=== PATIENT | female | born 1965 | race Two or more races ===

== ENCOUNTER → 2018-02-01 | Day surgery (SDC) | payer OTHER ==
[~2018-02-01] MED LIST: CALTRATE 600+D1 EACH PO; IRBESARTAN75 MG PO; METFORMIN HCL500 MG PO; SYNTHROID112 MCG PO; VITAMIN D350000 UNIT PO
== END | disposition home or self-care (01) ==
LOC: ADM 01-25 12:45 → CIR.AMB 01-25 12:45
DX: N95.0 Postmenopausal bleeding (principal); N84.0 Polyp of corpus uteri